=== PATIENT | male | born 1950 | race Two or more races ===

== ENCOUNTER 2019-06-19 14:11 | Emergency (ER) | payer OTHER ==
[~2019-06-19] VITALS: Ht 167.6 cm; Wt 76.7 kg
[2019-06-19] MEDS ORDERED: ATACAND4 MG (14:25)
[2019-06-19] MEDS ORDERED: METFORMIN HCL500 M3 (14:26)
[2019-06-19] MEDS ORDERED: CRESTOR5 MG (14:26)
[2019-06-19] MEDS ORDERED: PROTONIX40 MG (14:26)
[2019-06-19] MEDS ORDERED: CLARINEX-D 121 EACH (14:26)
[2019-06-19] MEDS ORDERED: PEPCID AC20 MG (14:27)
[2019-06-19] MEDS ORDERED: CHILDREN'S ASPI81 MG (14:27)
== END 2019-06-19 19:13 | disposition home or self-care (01) ==
LOC: ER 14:11
DX: K80.80 Other cholelithiasis without obstruction (principal)